=== PATIENT | female | born 1980 | race Caucasian/White ===

== ENCOUNTER 2022-10-25 15:42 | Outpatient (REF) | payer BC, SELFPAY ==
--- NOTE | ~2022-10-25 | MM_ITS ---
EXAMINATION: MM SCREENING DIGITAL BREAST TOMOSYNTHESIS, BILATERAL CLINICAL INFORMATION: Screening. Asymptomatic. Bilateral reduction mammoplasty. The lifetime risk of breast cancer based on the Tyrer-Cuzick Model is 8%. COMPARISON: Baseline mammography 02/25/2014, right breast ultrasound 02/24/2014. TECHNIQUE: Digital breast tomosynthesis is performed in both the craniocaudal and mediolateral oblique views along with computer-aided detection (CAD). Synthesized 2D images are generated from the tomosynthesis. FINDINGS: There are scattered areas of fibroglandular density (ACR BI-RADS breast composition Category b). There are interval bilateral minor scarring and bilateral reduced breast size consistent with the reduction mammoplasty. Circumscribed subcentimeter nodule anterior inferior right breast is similar to prior exam. There is no significant mass or architectural abnormality or abnormal calcifications. The axilla are unremarkable. MM/MM tomosynthesis screening BI IMPRESSION: -No mammographic evidence of malignancy. -Bilateral reduction mammoplasty changes. ASSESSMENT: BI-RADS 2: Benign RECOMMENDATION: Routine annual mammography screening. This patient's information was entered into a reminder system with a target due date for their next mammogram.
== END 2022-10-25 15:43 | disposition home or self-care (01) ==
LOC: HO.MAMMO 15:42
PROVIDERS: PCP Nurse Practitioner Family; Visit Provider Nurse Practitioner Family
DX: Z12.31 Encounter for screening mammogram for malignant neoplasm of breast (principal)
CPT/HCPCS: 77063; 77067

== ENCOUNTER 2024-07-05 15:26 | Outpatient (REF) | payer BC, SELFPAY ==
--- OUTSIDE RECORDS SUMMARY | 2024-07-05 19:30 | XMS_ITS | Data Portability ---
Author Organization [place] [facility] [place] Address [address] [place] [address] Care Team Providers Care Iron Pellet Tester Name Role Phone WILEY TRACY Primary Care Provider [phone] Assessment Encounter Date Assessment Date Assessment LastModified by Organization Details LastModified Time 10/14/2022 10/14/2022 42-year-old female with history of bilateral SI joint pain that previously improved with physical therapy. She has progressive sacral pain that radiates to her bilateral anterior groins in her proximal thighs. She also reports leg paresthesias and leg weakness. We reviewed her lumbar MRI. This was negative for high-grade neural compression. There is nondiagnostic for the severity of her symptoms. Her pain is severe. She is concerned about her stability and possible falls. We will order an MRI of her pelvis to include her sacrum and coccyx for further evaluation of causes of her severe pain. In the interim, we will send in a prescription for meloxicam. Risks and benefits were discussed. She will avoid other anti-inflammator ies while taking the medication. We discussed the option of physical therapy, at this time due to her severe pain she does not feel that she can meaningfully participate in physical therapy. She will follow-up after the MRI. Chart review: Report of the CT scan of her lumbar and sacrum, CRP, CBC, MRI of her lumbar spine. [email or web address] Not available 10/14/2022 17:38:41 10/28/2022 10/28/2022 42-year-old female with history of bilateral SI joint pain that previously improved with physical therapy. She underwent SI joint injections. The right SI joint injection gave her meaningful relief for an extended period of time. The left SI joint injection resulted in meaningful relief but only briefly. These injections persuasively suggest the pain is related to her sacroiliac joints. The SI joint injections were performed in [place]. The [place] physician discussed referral to a surgeon for SI joint fusion. I believe this is a reasonable recommendation. In the past she did well with physical therapy. We refer her to PT. If this fails she may well want to proceed with SI joint stabilization. She will do this in [place] or I am happy to refer her to a [place] surgery. This encounter required over 30 minutes of time including chart review, preparation, and documentation, face time with the patient as well as review of other documents and studies. [email or web address] Not available 10/29/2022 07:26:34 Plan of Treatment Reminders Order Date Submit Date Provider Last Modified By Organization Details Last Modified Time Details Appointments None recorded. Lab None recorded. Referral None recorded. Procedures None recorded. Surgeries None recorded. Imaging MRI, pelvis, w/o contrast - to include sacrum/cocc yx. Severe intractable sacrum/SI joint and leg pain and paresthesia s not explained by Lumbar MRI. 2022 023 MARCELINO Not available 09:29:46 Medication Orders meloxicam 15 mg tablet 2022 023 MARCELINO [id number], [address] [facility], [place], [address], 13:32:05 Patient TargetsNo targets recorded. Patient InstructionsNo instructions recorded. Reason for Referral None Reported. Results Created Date Observation Date Name Description Value Unit Range Abnormal Flag Note LastModifiedBy Organization Detail LastModifiedTime 10/16/1910/14/2022 MRI, pelvi s, w/o contr ast No observ ation record ed. [email or web address] [facility] [address], [place], [address], 10/16/2022 16:45:45 10/16/19 MRI, lumba r spine , w/o contr ast No observ ation record ed. [email or web address] Not Available 02/2023 10:20:37 10/31/19 MRI, pelvi s, w/o contr ast No observ ation record ed. [email or web address] Not Available 2022 13:36:48 Result Notes None recorded. Procedures Surgical History None recorded. Imaging Results Imaging Date Name Status LastModified by Organiz ation Details LastModified Time 10/14/2022 MRI, pelvis, w/o contrast completed [facility] [address] [address] [facility] [address], [place], [address], 10/16/2022 16:45:45 10/15/2022 MRI, lumbar spine, w/o contrast completed [email or web address] Information not available 10/15/2022 10:20:37 10/30/2022 MRI, pelvis, w/o contrast completed [email or web address] Information not available 10/30/2022 13:36:48 Procedure Notes None recorded. Medical Equipment None Reported. Medications Name Sig Start Date Stop Date Status Note LastModified by Organization Details LastModified Time binaxnow cov kit home prem active Not Available Not Available Not Available benzonatate 200 mg capsule TAKE 1 CAPSULE BY MOUTH THREE TIMES A DAY NEEDED FOR COUGH active Not Available Not Available No t Available meloxicam 15 mg tablet TAKE 1 TABLET BY MOUTH EVERY DAY NEEDED active Not Available Not Available No t Available lorazepam 0.5 mg tablet TAKE 1-2 TABS DAILY NEEDED FOR PANIC ATTACK active Not Available Not Available No t Available erythromycin 5 mg/gram (0.5 %) eye ointment PLEASE SEE ATTACHED FOR DETAILED DIRECTIONS active Not Available Not Available N ot Available brompheniram ine-pseudoep hedrine-DM 2 mg-30 mg-10 mg/5 mL oral syrup TAKE 10 ML BY MOUTH 4 (FOUR) TIMES A DAY NEEDED FOR CONGESTION OR COUGH. active Not Available Not Available No t Available ondansetron 4 mg disintegrati ng tablet DISSOLVE 1 TABLET BY MOUTH EVERY 8 HOURS NEEDED FOR NAUSEA AND VOMITING active Not Available Not Available No t Available sertraline 50 mg tablet TAKE 1/2 TABLET DAILY FOR 1-2 WEEKS THEN 1 TABLET DAILY active Not Available Not Available No t Available colestipol 1 gram tablet TAKE 2 TABLETS BY MOUTH 2 TIMES A DAY FOR 60 DAYS active Not Available Not Available Not Available oxycodone 5 mg tablet TAKE 1 TABLET BY MOUTH EVERY 4 HOURS NEEDED FOR SEVERE PAIN active Not Available Not Available Not Available BinaxNOW COVID-19 Ag Self Test kit TEST DIRECTED TODAY active Not Available Not Available No t Available Vitals Date Recorded Body weight Body mass index (BMI) Body height Provider Name and Address Organization Details Last Updated DateTime 10/28/2022 89757.66 g 29.1 kg/m2 165.[address] [facility] 10/28/2022 15:21:50 Social History None recorded. Functional Status None recorded. Mental Status None recorded. Family History Nothing Reported. Medical History No medical history recorded. Gynecological HistoryNo gynecological history recorded. Obstetrics History GPAL:G 0 P 0 0 0 0 Past Encounters Encounter ID Performer Location Encounter Start Date Encounter Closed Date Diagnosis/Indication Diagnosis SNOMED-CT Code Diagnosis ICD10 Code Diagnosis Note [id number] Moises Clemente MD [address] [address] 10/14/2022 12:17:31 10/14/2022 13:27:55 Sacral back pain 81110009 M54.50 M79.606 R20.0 W19.XXXA [id number] Moises Clemente MD [address] [address] 10/28/2022 15:09:55 10/28/2022 15:39:52 Fracture of coccyx 401173357 S32.2XXS Sacroiliac joint pain 20 0599750 M53.3 Health Concerns Section Related Observation LastModified by Organization Detai ls LastModified Time None Recorded Concern Status LastModified by Organization Details LastModified Time None Recorded Advance Directives Directive None Recorded Payers Encounter Date Sequence Insurance Name Policy Number Policy Mai Covered Member ID Mai Member ID Guarantor Name 10/14/2022 1 [place] [id number] Joseline Varma [id number] Joseline Avani 10/28/2022 1 [place] [id number] Joseline Avani [id number] Joseline Avani Notes Date Note Type Note Provider Name and Address Organization Details Recorded Time 10/14/2022 text/html Joseline is a 42-year-old female who presents today for evaluation of her lumbar spine. 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 She has a history of SI joint pain previously treated with SI joint injections and physical therapy in 2017 2018. Her symptoms significantly improved but did not fully resolved. On August 12, 2022 she fell backwards into her stairs at home. She reports that she slammed her tailbone into the stairs. She was evaluated at [facility] emergency department. CT scans of her lumbosacral spine and pelvis were obtained which per report were negative for fracture. She also had x-rays of her sacrum coccyx which per report were negative for acute abnormality. She followed up with her riding coach (Dr. Bunch) and underwent bilateral SI joint injections on September 26, 2022. She reports that she had severe headache for 5 days after the injection. She does not believe that these injections helped her symptoms. Over the past week and pain has severely worsened. She described severe lumbosacral pain with intermittent pain that radiates into her bilateral groin and superior thighs. She has intermittent left leg paresthesias and reports bilateral leg weakness. She had one occasion of urinary leakage. She did not have saddle anesthesia. her pain is worse with prolonged sitting, laying down and movement. She returned to the emergency department on October 09, 2022, she had blood work and an MRI of her lumbar spine. She pulled up her MyChart so I can review her labs. She has a CRP that was minimally elevated at 0.8, CBC was unremarkable, white blood cell count was normal. The MRI of her lumbar spine revealed mild multilevel degenerative changes. There is a disc bulge at L4-5 and L5-S1 without high-grade central or foraminal stenosis. Pain disturbs sleep. No saddle anesthesia. No bowel or bladder incontinence. No fevers, chills, or unexplained weight loss. Treatments today include bilateral SI joint injections, [id number]-[id number] medication, pain medication from the emergency department, home exercise, thermal modalities, an SI joint belt, ergonomic chair. Activity modification. GIO ALBERTO PA-C [address], [place], [address], [facility] 10/14/2022 17:39:26 10/28/2022 text/html HPI: 42-year-old woman with low back pain felt to be related to her SI joint returns for continued management. Prior Visit:Assessment & Uohl18-elob-erk female with history of bilateral SI joint pain that previously improved with physical therapy.She has progressive sacral pain that radiates to her bilateral anterior groins in her proximal thighs. She also reports leg paresthesias and leg weakness.We reviewed her lumbar MRI. This was negative for high-grade neural compression. There is nondiagnostic for the severity of her symptoms.Her pain is severe. She is concerned about her stability and possible falls.We will order an MRI of her pelvis to include her sacrum and coccyx for further evaluation of causes of her severe pain.In the interim, we will send in a prescription for meloxicam. Risks and benefits were discussed. 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 Her symptoms significantly improved but did not fully resolved.On August 12, 2022 she fell backwards into her stairs at home. She reports that she slammed her tailbone into the stairs. She was evaluated at [facility] emergency department. CT scans of her lumbosacral spine and pelvis were obtained which per report were negative for fracture. She also had x-rays of her sacrum coccyx which per report were negative for acute abnormality.She followed up with her riding coach (Dr. Bunch) and underwent bilateral SI joint injections on September 26, 2022. She reports that she had severe headache for 5 days after the injection. She does not believe that these injections helped her symptoms.Over the past week and pain has severely worsened. She described severe lumbosacral pain with intermittent pain that radiates into her bilateral groin and superior thighs. She has intermittent left leg paresthesias and reports bilateral leg weakness. She had one occasion of urinary leakage. She did not have saddle anesthesia. her pain is worse with prolonged sitting, laying down and movement.She returned to the emergency department on October 09, 2022, she had blood work and an MRI of her lumbar spine. She pulled up her MyChart so I can review her labs. She has a CRP that was minimally elevated at 0.8, CBC was unremarkable, white blood cell count was normal.The MRI of her lumbar spine revealed mild multilevel degenerative changes. There is a disc bulge at L4-5 and L5-S1 without high-grade central or foraminal stenosis.Pain disturbs sleep. No saddle anesthesia. No bowel or bladder incontinence. No fevers, chills, or unexplained weight loss.Treatments today include bilateral SI joint injections, hkyj-hsi-lvfpwzv medication, pain medication from the emergency department, home exercise, thermal modalities, an SI joint belt, ergonomic chair. Activity modification. Moises Clemente MD [address], [place], [address], [facility] 10/29/2022 07:27:09 OBGyn Episode No OBEpisode recorded.
--- OUTSIDE RECORDS SUMMARY | 2024-07-05 19:30 | XMS_ITS | Clinical Summary ---
Author Organization [facility] Address [address] [place] [address] Care Team Providers Care Side Stitching Machine Operator Name Role Phone Unknown Primary Care Provider [phone] Allergies Active Allergy Reactions Criticality Noted Date Comments Amoxicillin Hives Medium 03/21/2022 Cephalexin Hives Medium 03/21/2022 Levofloxacin Rash/Dermatitis Low 06/10/2017 hives hives Penicillins Hives Medium 03/21/2022 Medications Medication Sig Dispensed Refills Start Date End Date Status sertraline (ZOLOFT) 50 MG tablet TAKE 1/2 TABLET DAILY FOR 1-2 WEEKS THEN 1 TABLET DAILY 03/01/2022 Active fluticasone (FloNASE) 50 mcg/spray nasal sprayIndications:Vi ral URI with cough 1 spray into each nostril daily. 1 each 04/09/2023 Active benzonatate (TESSALON) 200 MG capsuleIndications: Viral URI with cough Take 1 capsule (200 mg total) by mouth 3 (three) times a day as needed for cough. 30 capsule 04/09/2023 Active albuterol (PROVENTIL HFA; VENTOLIN HFA) 108 (90 Base) MCG/ACT inhalerIndications: Viral URI with cough Inhale 2 puffs 4 times daily (every 6 hours) as needed for wheezing. 1 each 04/09/2023 Active erythromycin (ILOTYCIN) ophthalmic ointmentIndications :Hordeolum externum of right lower eyelid Administer 1 application(s) to the right eye 4 (four) times a day. 3.5 g 01/20/2024 Active Active Problems Problem Noted Date Diagnosed Date Class 1 obesity 01/23/2022 Hypo-osmolality and hyponatremia 01/23/2022 Inflammation of sacroiliac joint 07/24/2018 Trochanteric bursitis of right hip 07/24/2018 Anxiety disorder 06/10/2017 Hypertrophy of breast 06/10/2017 Insomnia 06/10/2017 Psychophysiological insomnia 06/10/2017 Laryngitis 06/10/2017 Mild intermittent asthma with acute exacerbation 06/10/2017 Moderate persistent asthma without complication 06/10/2017 Overactive bladder 06/10/2017 Overweight 06/10/2017 Stress incontinence in female 06/10/2017 Immunizations Name Administration Dates Next Due Influenza Inactivated/Split Preservative Free IM 03/29/2011 Influenza, Quadrivalent (FLU ARIX, AFLURIA, FLULAVAL, FLUZONE) Preservative Free IM 05/25/2018 Influenza, Unspecified 03/29/2011 Tdap 10/22/2017 Social History Tobacco Use Types Packs/Day Years Used Date Smoking Tobacco: Never Smokeless Tobacco: Never Tobacco Cessation:Counseling Given: Not Answered Alcohol Use Standard Drinks/Week Comments Never 0 (1 standard drink = 0.6 oz pur e alcohol) Sex and Gender Information Value Date Recorded Sex Assigned at Not on file Gender Identity Not on file Sexual Orientation Not on file Last Filed Vital Signs Vital Sign Reading Time Taken Comments Blood Pressure 130/86 01/20/2024 9:08 AM EDT Pulse 66 01/20/2024 9:08 AM EDT Temperature 36.1 ??C (96.9 ??F) 01/20/2024 9:08 AM ED T Respiratory Rate 16 01/20/2024 9:08 AM EDT Oxygen Saturation 97% 01/20/2024 9:08 AM EDT Inhaled Oxygen Concentration - - Weight 84.4 kg (186 lb) 03/21/2022 3:09 PM EDT Height - - Body Mass Index - - Plan of Treatment Health Maintenance Due Date Last Done Comments Hepatitis C Virus Screening 1978 HIV Screening 1991 Hepatitis B Vaccines (1 of 3 - 19+ 3-dose series) 1997 Pneumococcal Vaccine: Pediatric (0-5 Years) and At-Risk Patients (6 to 49 Years) (1 of 2 - PCV) 1997 Pap Smear (Ages 21-65) 1999 Mammogram 2018 Colonoscopy 2023 Influenza Vaccine 01/08/2024 05/25/2018, 03/29/2011, 03/29/2011 COVID-19 Vaccine ( - 2023-2 5 season) 2024 DTaP/Tdap/Td Vaccines (2 - T d or Tdap) 10/23/2027 10/22/2017 HPV Vaccines Aged Out No longer eligi ble based on patient's age to complete this topic Care Teams Side Stitching Machine Operator Relationship Specialty Start Date End Date Unknown Unknow Provider Address PCP - General 03/21/22
--- OUTSIDE RECORDS SUMMARY | 2024-07-05 19:30 | XMS_ITS | Clinical Summary ---
Author Organization [facility] Address [address] [place] [address] Care Team Providers Care Electric Operator Name Role Phone Bethany English NP Primary Care Provider [phone] Allergies Active Allergy Reactions Criticality Noted Date Comments Cephalexin Hives,Rash Medium 06/10/2017 Levofloxacin Rash Low 06/10/2017 Penicillins Rash Medium 06/10/2017 Medications Medication Sig Dispensed Refills Start Date End Date Status cyclobenzaprine (FLEXERIL) 5 MG tablet Take 1 tablet (5 mg total) by mouth 3 (three) times a day as needed for muscle spasms. 30 tablet 0 09/14/2023 Active Active Problems No known active problems Social History Tobacco Use Types Packs/Day Years Used Date Smoking Tobacco: Never Assessed Sex and Gender Information Value Date Recorded Sex Assigned at Female 09/13/2023 12:33 PM EDT Gender Identity Female 09/13/2023 12:33 PM EDT Sexual Orientation Not on file Job Start Date Occupation Industry Not on file Not on file Not on file Last Filed Vital Signs Vital Sign Reading Time Taken Comments Blood Pressure 132/65 09/14/2023 6:41 AM EDT Pulse 82 09/14/2023 6:41 AM EDT Temperature 36.7 ??C (98 ??F) 09/14/2023 6:41 AM EDT Respiratory Rate 20 09/14/2023 6:41 AM EDT Oxygen Saturation 98% 09/14/2023 6:41 AM EDT Inhaled Oxygen Concentration - - Weight 74.4 kg (164 lb) 09/14/2023 7:22 AM EDT Height 162.6 cm (5' 4 ) 09/14/2023 7:22 AM EDT Body Mass Index 28.15 09/14/2023 7:22 AM EDT Plan of Treatment Health Maintenance Due Date Last Done Comments Hepatitis B Vaccines (1 of 3 - 3-dose series) 1978 Hepatitis C Screening 1978 COVID-19 Vaccine (#1) 1978 Depression Screening 1990 Preventative Health Evaluation 1996 Cervical Cancer Screening (Pap Smear) 1999 Colon Cancer Screening (Colonoscopy) 2023 Influenza Vaccine (#1) 2024 8, 03/29/2011 DTap / Tdap / Td (2 - Td or Tdap) 10/23/2027 10/22/2017 Pneumococcal Vaccine Aged Out No long er eligible based on patient's age to complete this topic RSV Ped < 20 months Aged Out No longe r eligible based on patient's age to complete this topic Care Teams Electric Operator Relationship Specialty Start Date End Date Bethany English NP [address] [facility] [place] [address] PCP - General Family Medicine 09/13/23
--- OUTSIDE RECORDS SUMMARY | 2024-07-05 19:30 | XMS_ITS | Encounter Summary ---
Author Organization [facility] Address [address] [place] [address] Care Team Providers Care Vp Respiratory Name Role Phone Unknown Primary Care Provider [phone] Encounter Details Date Type Department Care Team (Late st Contact Info) Description 04/16/2022 10:42 AM EST Hospital Encounter [facility] [address] [place] [address] Diamante Barber PA [address] [facility] Social History Tobacco Use Types Packs/Day Years Used Date Smoking Tobacco: Never Smokeless Tobacco: Never Alcohol Use Standard Drinks/Week Comments Never 0 (1 standard drink = 0.6 oz pur e alcohol) Sex and Gender Information Value Date Recorded Sex Assigned at Not on file Gender Identity Not on file Sexual Orientation Not on file COVID-19 Exposure Response Date Recorded In the last 10 days, have yo u been in contact with someone who was confirmed or suspected to have Coronavirus/COVID-19? Unable to assess 04/16/2022 10:42 AM EST documented as of this encounter Plan of Treatment Not on file documented as of this encounter Procedures Procedure Name Priority Date/Time Associated Diagnosis Comments XR HAND 3+ VIEWS-RIGHT STAT 04/16/2022 10:49 AM EST Right hand pain documented in this encounter Results * XR Hand 3+ views-Right (04/16/2022 10:49 AM EST) Anatomical Region Laterality Modality Hand Right Computed Radiogr aphy 04/16/2022 11:0 2 AM EST Impressions 04/16/2022 11:03 AM EST No acute right hand abnormality. Narrative 04/16/2022 11:03 AM EST PA, lateral and oblique right hand views were obtained. ??No prior studies for comparison. HISTORY: ??right hand pain after jamming hand into wall. TTP over the 3rd and 4th MC with mild STS and ecchymosis. FINDINGS: ??Alignment is normal. ??No fracture. ??No deformity. ??Joint spaces are maintained. ??Soft tissues are unremarkable. Procedure Note Neno Tavares MD - 04/16/2022 PA, lateral and oblique right hand views were obtained. No prior studiesfor comparison. HISTORY: right hand pain after jamming hand into wall. TTP over the 3rdand 4th MC with mild STS and ecchymosis. FINDINGS: Alignment is normal. No fracture. No deformity. Joint spacesare maintained. Soft tissues are unremarkable. IMPRESSION: No acute right hand abnormality. Diamante [facility] ORDERABLES documented in this encounter Visit Diagnoses Not on filedocumented in this encounter Care Teams Vp Respiratory Relationship Specialty Start Date End Date Unknown Unknow Provider Address PCP - General 03/21/22 documented as of this encounter
--- OUTSIDE RECORDS SUMMARY | 2024-07-05 19:30 | XMS_ITS ---
Author Name [facility] Organization Unknown History of Medication Use Medication Directions Dispensed Refills Start Date End Date Stat acetaminophen (TYLENOL) tablet 975 mg 975 mg, Oral, Once, On 09/13/23 at 1400, For 1 dose 09/13/2023 4 completed ketorolac (TORADOL) injection 15 mg 15 mg, Intravenous, Once, On 09/14/23 at 0700, For 1 dose 09/14/2023 4 completed sertraline 50 mg tablet TAKE 1/2 TABLET DAILY FOR 1-2 WEEKS THEN 1 TABLET DAILY active erythromycin 5 mg/gram (0.5 %) eye ointment PLEASE SEE ATTACHED FOR DETAILED DIRECTIONS active colestipol 1 gram tablet TAKE 2 TABLETS BY MOUTH 2 TIMES A DAY FOR 60 DAYS active ondansetron 4 mg disintegrating tablet DISSOLVE 1 TABLET BY MOUTH EVERY 8 HOURS NEEDED FOR NAUSEA AND VOMITING active albuterol (PROVENTIL HFA; VENTOLIN HFA) 108 (90 Base) MCG/ACT inhaler Inhale 2 puffs 4 times daily (every 6 hours) as needed for wheezing. 04/09/2023 active oxyCODONE (ROXICODONE) 5 MG immediate release tablet 5 mg 5 mg, Oral, Once, On 09/13/23 at 1815, For 1 dose 09/13/2023 4 completed No known medications No known medications active ondansetron (ZOFRAN) injection 4 mg 4 mg, Intravenous, Once, On 09/13/23 at 1230, For 1 doseIV push over 2 to 5 minutes. 09/13/2023 4 completed Problems Problem Status Onset Date Problem Type Date of Resolution Source Insomnia active 2 ProblemAct [facility] Class 1 obesity active 2022-01-07 7 ProblemAct [facility] Hordeolum externum of right lower eyelid active EncounterDiagnosisAct [facility] Trochanteric bursitis of right hip active 2018-07-10 5 ProblemAct [facility] Back pain active EncounterDiagnosisAct [facility] Sacroiliitis (HCC) active EncounterDiagnosisAct [facility] Hypertrophy of breast active 2 ProblemAct [facility] Anxiety disorder active 2 ProblemAct [facility] Overweight active 2 ProblemAct [facility] Inflammation of sacroiliac joint active 2018-07-10 5 ProblemAct [facility] Laryngitis active 2 ProblemAct [facility] Hypo-osmolality and hyponatremia active 2022-01-07 7 ProblemAct [facility] Psychophysiological insomnia active 2 ProblemAct [facility] Stress incontinence in female active 2 ProblemAct [facility] Mild intermittent asthma with acute exacerbation active 2 ProblemAct [facility] Overactive bladder active 2 ProblemAct [facility] Moderate persistent asthma without complication active 2 ProblemAct [facility] Immunizations Vaccine Date Source Lot Number Status Tdap 10/22/2017 [facility] [id number] completed Influenza, Unspecified 03/29/2011 [facility] co mpleted Influenza Inactivated/Split Preservative Free IM 03/29/2011 [facility] completed Influenza, Quadrivalent (FLU ARIX, AFLURIA, FLULAVAL, FLUZONE) Preservative Free IM 05/25/2018 [facility] [id number] completed
--- OUTSIDE RECORDS SUMMARY | 2024-07-05 19:30 | XMS_ITS | Clinical Summary ---
Author Organization [facility] [place] [address] Care Team Providers Care Employee Benefits Director Name Role Phone Bethany English NP Primary Care Provider Unavailabl e Social History Tobacco Use Types Packs/Day Years Used Date Smoking Tobacco: Never Assessed Sex and Gender Information Value Date Recorded Sex Assigned at Not on file Gender Identity Not on file Sexual Orientation Not on file Obstetrics History Plan of Treatment Health Maintenance Due Date Last Done Comments Breast Cancer Screening 1978 DTaP,Tdap,and Td Vaccines (1 - Tdap) 1997 Hepatitis B Vaccines (1 of 3 - 19+ 3-dose series) 1997 Cervical Cancer Screening: P ap Smear 1999 Colorectal Cancer Screening: Colonoscopy 07/04/2023 Depression Screening 07/04/2023 HIV Screening 07/04/2023 Hepatitis C Screening 07/04/2023 Social Influencers of Health Screening 07/04/2023 COVID-19 Vaccine ( - 2023-2 5 season) 2024 Influenza Vaccine (#1) 2024 HIB Vaccines Aged Out No longer eligi ble based on patient's age to complete this topic HPV Vaccines Aged Out No longer eligi ble based on patient's age to complete this topic Hepatitis A Vaccines Aged Out No long er eligible based on patient's age to complete this topic IPV Vaccines Aged Out No longer eligi ble based on patient's age to complete this topic MMR Vaccines Aged Out No longer eligi ble based on patient's age to complete this topic Meningococcal ACWY Vaccine Aged Out N o longer eligible based on patient's age to complete this topic Pneumococcal Vaccine: Pediat rics (0 to 5 Years) and At-Risk Patients (6 to 64 Years) Aged Out No longer eligible b ased on patient's age to complete this topic RSV Immunization Patients Un cullen 20 months Aged Out No longer eligible b ased on patient's age to complete this topic Varicella Vaccines Aged Out No longer eligible based on patient's age to complete this topic Care Teams Employee Benefits Director Relationship Specialty Start Date End Date Bethany English NP PCP - General 09/13/23
--- OUTSIDE RECORDS SUMMARY | 2024-07-05 19:30 | XMS_ITS | Data Portability ---
Author Organization [facility], [employer] - [facility] Address [address] 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 Overall the patient is doing well postoperatively. Her pre-op symptoms of left-sided pain are improving. She is neurologically intact. Her incision is healing well. X-ray shows evidence of well-positioned sacroiliac bolts in the left SI joint. Her right side is now very symptomatic. She did get over 6 months of relief with our previous right-sided SI joint injection. But is now interested in having this addressed surgically. She has done extensive nonoperative treatment for the SI joint on the right side with a full course with multiple full courses of physical therapy, home excercises as well as multiple epidural injections. At this point, I do believe she may be a candidate for an SI joint stabilization on the right side. The last step required before moving forward with this is a diagnostic-only injection. We will get her set up for a right-sided diagnostic SI joint injection with local anesthetic and she will follow up with me in a few days after to discuss the relief that she got. If she does get significant relief from this then we can consider moving forward with a right-side joint stabilisation. PLAN: The patients symptoms, imaging, diagnosis, and treatment options were discussed at length today. After educating the patient, the following recommendations were agreed upon: ------ A referral was placed for Spinal Injections, specifically - right-sided diagnostic SI joint injection. I discussed the risks and benefits of the injection. The patient was advised to keep a pain diary to assess the effects of the injection ------ FOLLOW UP The patient will follow up with us 1-2 weeks after the injection to assess for effect Not available 09/23/2023 11:58:30 10/08/2023 10/08/2023 ASSESSMENT Diagnosis: 8 months s/p left SI joint stabilization The patient underwent a left SI joint stabilization approximately 8 months ago. Overall the patient is doing well postoperatively. Her pre-op symptoms of left-sided pain are improving. She is neurologically intact. Her incision is healing well. X-ray shows evidence of well-positioned sacroiliac bolts in the left SI joint. More recently she has had similar pain symptoms in her right SI joint. Pain is isolated to the right buttock region. She has numerous positive SI joint provocative maneuvers on exam. Her lumbar imaging and CT pelvis did not show any obvious concurrent pathology. She has had previous therapeutic SI joint steroid injections with significant, greater than 90% pain relief. She has also done extensive multiple courses of physical therapy focused on her SI joints. Most recently her purely diagnostic SI joint injection gave her once again nearly 100% pain relief but only for short duration of time. I believe that we now had enough diagnostic information to proceed with a right SI joint stabilization. At length discussion with the patient regarding SI joint stabilization. We discussed the risks benefits alternatives. I explained that I could surgery to be similar to her left side from which she got profound relief. At this point she is interested in proceeding. PLAN: The patients symptoms, imaging, diagnosis, and treatment options were discussed at length today. After educating the patient, the following recommendations were agreed upon: ------ Surgery is recommended. The patient has failed all other conservative options. At this point they are a candidate for surgery. The surgery would be a right SI joint stabilization The risks and benefits of thoraco-lumbar surgery in general were discussed at length. The risks discussed include the cardio-pulmonary risks of anesthesia, blood clots, scarring, post operative pain, blood loss and need for transfusion, risk of infection, risk of damage to neurologic structures resulting in partial paralysis, bowel or bladder incontinence, and the understanding that some complications can occur which are unexpected. I discussed the risks specific to a SI joint stabilization. This includes pain in the gluteal musculature with some bleeding, damage to the L5 and S1 nerve roots as well as the nerve roots leading to the bowel and bladder function. Fracture of the sacrum or ilium. Possible damage to intrapelvic structures. Finally I discussed that SI joint pathology is sometimes confounded by other pain generator and the patient may not get 100% relief. I also explained that I use the SI-Bone I-Fuse titanium bolt implants for the stabilization. I explained that this is the only hardware that has level 1 evidence to support its use. No guarantees were given or implied. The patient will consider this surgical option, and begin the pre-operative clearance and optimization process with their PCP. This surgery will be done as an outpatient. The surgery will require general anesthesia will be a mild physiologic burden on the patient. ------ FOLLOW UP The patient will follow up with us for their pre-op appointment Not available 10/08/2023 21:15:16 10/20/2023 10/20/2023 ASSESSMENT Diagnosis: 8 months s/p left SI joint stabilization, now with right SI joint dysfunction Surgical Plan: right SI joint stabilization PLAN: The patients symptoms, imaging, diagnosis, surgery, and post operative course were discussed at length today. We again reviewed the risks of surgery in depth that were discussed at the last visit. I discussed the risks specific to a SI joint stabilization. This includes pain in the gluteal musculature with some bleeding, damage to the L5 and S1 nerve roots as well as the nerve roots leading to the bowel and bladder function. Fracture of the sacrum or ilium. Possible damage to intrapelvic structures. Finally I discussed that SI joint pathology is sometimes confounded by other pain generator and the patient may not get 100% relief. I also explained that I use the SI-Bone I-Fuse titanium bolt implants for the stabilization. I explained that this is the only hardware that has level 1 evidence to support its use. Post operative instructions were reviewed in detail. I also reviewed the post operative medications I will be starting in detail with the patient. I will plan to prescribe these medications upon discharge after surgery. The patient elected to proceed with surgery. The patient's specific questions about Intraoperative risk and postoperative recovery were answered. ------ FOLLOW UP The patient will follow up with me in clinic 3 weeks after surgery. Not available 10/21/2023 12:03:09 11/17/2023 11/17/2023 ASSESSMENT Diagnosis: 3 weeks s/p right SI joint stabilization The patient is a pleasant 43 year old female who is here for a postoperative visit. The patient underwent a right SI joint stabilization approximately 3 weeks ago. She has a previous history of a left SI joint stabilization. Overall the patient is doing well postoperatively. Their pre-op symptoms are largely resolved. The patient reports some muscle spasms in her right buttock and hamstring. On exam, the patient? s incision is well healed. The patient is neurologically is intact throughout. X-rays show well-positioned and intact titanium bolts in the bilateral SI joint. The patient is doing very well postoperatively. She has had near complete resolution of her pain. She s has some soreness and occasional spasming in her right buttock due to the surgical dissection, but otherwise is doing very well postoperatively. She is not taking any pain medications. I asked her to minimize any bending, twisting, lifting, or straining through the SI joint for the next 3 months. I encouraged her to continue ambulating as much as possible. She will follow up with me in 3 months for a telehealth appointment. Can consider core strengthening PT at that time is necessary. PLAN: The patients symptoms, imaging, diagnosis, and treatment options were discussed at length today. After educating the patient, the following recommendations were agreed upon: ------ FOLLOW UP The patient will follow up with us in 3 months for telehealth Not available 11/17/2023 19:49:14 02/23/2024 02/23/2024 ASSESSMENT Diagnosis: 3 months s/p right SI joint stabilization The patient is a pleasant 43 year old female who is here for a postoperative visit. The patient underwent a right SI joint stabilization approximately 3 months ago. She has a previous history of a left SI joint stabilization. Overall the patient is doing well postoperatively. Their pre-op symptoms are largely resolved. The patient reports some muscle spasms in her right buttock and hamstring. On exam, the patient? s incision is well healed. The patient is neurologically is intact throughout. X-rays show well-positioned and intact titanium bolts in the bilateral SI joint. Overall the patient is doing very well postoperatively. Her preop symptoms continue to be resolved. At this point I believe she would benefit from some physical therapy. She no longer has restrictions from my end. We will focus on both core strength and lumbar range of motion as well as some hip flexibility given the stiffness she feels in the morning. She can follow-up with me in 8 months for her 1 year postop visit. PLAN: The patients symptoms, imaging, diagnosis, and treatment options were discussed at length today. After educating the patient, the following recommendations were agreed upon: ------ The patient would benefit from Physical Therapy, specifically- Core Strengthening, Paraspinal Muscles Strengthening and Lower Back Range of Motion ------ ------ FOLLOW UP The patient will follow up with us in 8 months for a 1 year follow up Not available 02/23/2024 22:50:05 Plan of Treatment Reminders Order Date Submit Date Provider Last Modified By Organization Details Last Modified Time Details Appointments None recorded. Lab None recorded. Referral None recorded. Procedures sacroiliac joint injection (PROC) - RIGHT SIDED SI JOINT INJECTION (LOCAL ANESTHETIC ONLY)-PLEAS E SCHEDULE LEA [address], [address] [place] [address] -, [address], [place], [address], 20:28:35 Surgeries None recorded. Imaging XR, pelvis, 1 or 2 view [address] - Office - [place], [address] [facility], [facility] [address], [place], [address], 11:57:29 XR, pelvis, 3 or more view [address] Office - [place], [address] [place] [address], [facility] [address], [place], [address], 19:51:26 Medication Orders cyclobenzap rine 10 mg tablet 2023 024 [place] [address] [id number], [phone] [place], [address], 19:51:26 Patient TargetsNo targets recorded. Patient Instructions Encounter Date Encounter Id Patient Instructions Last Modified By Organization Details Last Modified Time 09/22/2023 [id number] weight managemen t education [place] [address] Not available 09/22/2023 20:28:35 11/17/2023 [id number] [facility] managemen [email or web address] Not available 11/17/2023 19:51:26 Reason for Referral None Reported. Results Created Date Observation Date Name Description Value Unit Range Abnormal Flag Note LastModifiedBy Organization Detail LastModifiedTime 09/22/19 24 XR, pelvi s, 1 or 2 view No observ ation record ed. [email or web address] Office - [place] [address] [facility], [place], [address], 09/23/2023 11:57:29 11/17/19 24 XR, pelvi s, 3 or more view No observ ation record ed. [facility] [place] [address] [place] [address], [place], [address], 11/17/2023 19:48:32 Result Notes None recorded. Problems No Known Problems Procedures Surgical History None recorded. Imaging Results Imaging Date Name Status LastModified by Organiz ation Details LastModified Time 09/22/2023 XR, pelvis, 1 or 2 view completed [address] - Office - [place] [address] [facility] [address], [place], [address], 09/23/2023 11:57:29 11/17/2023 XR, pelvis, 3 or more view completed [address] - [place] [address], [place], [address], 11/17/2023 19:48:32 Procedure Notes None recorded. Medical Equipment None Reported. Allergies Allergen ID Allergen Name Allergen Category Reaction Reaction Severity Criticality Documentation Date Start Date Code Code System Note Provider Name and Address Organization Details Recorded Time [id number] 2824e Keflex medicatio n Not available Not available Not available 10/21/2022 48334 7 RxNorm Not Available Not Available Not Available [id number] 2824e amoxicill in medicatio n Not available Not available Not available 10/21/2022 723 RxNorm Not Available Not Available Not Available [id number] 2824e Product containin g penicilli n and antibioti c (product) medicatio n Not available Not available Not available 10/21/2022 59870 05 SNOMED Not Available Not Available Not Available Medications Name Sig Start Date Stop Date Status Note LastModified by Organization Details LastModified Time binaxnow cov kit home prem 10/21 completed Not Available Not Available Not Available cyclobenzap rine 10 mg tablet TAKE 1 TABLET BY MOUTH THREE TIMES A DAY NEEDED FOR 30 DAYS active Not Available Not Available No t Available azithromyci n 250 mg tablet TAKE 2 TABLETS BY MOUTH TODAY, THEN TAKE 1 TABLET DAILY FOR 4 DAYS DIRECTED active Not Available Not Available No t Available benzonatate 200 mg capsule TAKE 1 CAPSULE BY MOUTH THREE TIMES A DAY NEEDED FOR COUGH active Not Available Not Available No t Available meloxicam 15 mg tablet TAKE 1 TABLET BY MOUTH EVERY DAY NEEDED 10/21 completed Not Available Not Available Not Available ondansetron HCl 4 mg tablet TAKE 1 TABLET BY MOUTH EVERY 8 HOURS NEEDED FOR NAUSEA AND VOMITING active Not Available Not Available No t Available prednisone 20 mg tablet active Not Available Not Available Not Available acetaminoph en 500 mg tablet TAKE 2 TABLETS BY MOUTH EVERY 8 HOURS active Not Available Not Available No t Available lorazepam 0.5 mg tablet TAKE 1-2 TABS DAILY NEEDED FOR PANIC ATTACK 10/21 completed Not Available Not Available Not Available Zoloft 50 mg tablet Take 1 tablet every day by oral route. active Not Available Not Available No t Available erythromyci n 5 mg/gram (0.5 %) eye ointment ADMINISTE R 1 APPLICATI ON(S) TO THE RIGHT EYE 4 (FOUR) TIMES A DAY. active Not Available Not Available No t Available gabapentin 300 mg capsule Take 1 capsule 3 times a day by oral route. active Not Available Not Available No t Available lorazepam 1 mg tablet active Not Available Not Available No t Available ibuprofen 600 mg tablet TAKE 1 TABLET BY MOUTH EVERY 6 HOURS NEEDED FOR PAIN active Not Available Not Available No t Available methylpredn isolone 4 mg tablets in a dose pack TAKE DIRECTED BY MOUTH active Not Available Not Available No t Available bromphenira mine-pseudo ephedrine-D M 2 mg-30 mg-10 mg/5 mL oral syrup TAKE 10 ML BY MOUTH 4 (FOUR) TIMES A DAY NEEDED FOR CONGESTIO N OR COUGH. 10/21 completed Not Available Not Available Not Available ondansetron 4 mg disintegrat ing tablet Place 2 tablets twice a day by transling ual route, for nausea. active Not Available Not Available No t Available fluticasone propionate 50 mcg/actuati on nasal spray,suspe nsion INSTILL 1 SPRAY INTO EACH NOSTRIL EVERY DAY active Not Available Not Available No t Available colestipol 1 gram tablet TAKE 2 TABLETS BY MOUTH 2 TIMES A DAY FOR 60 DAYS 10/21 completed Not Available Not Available Not Available Ventolin HFA 90 mcg/actuati on aerosol inhaler INHALE 2 PUFFS BY MOUTH EVERY 6 HOURS NEEDED FOR WHEEZE active Not Available Not Available No t Available oxycodone 5 mg tablet Take 1 tablet every 6-8 hours by oral route. active Not Available Not Available No t Available cyclobenzap rine 5 mg tablet active Not Available Not Available Not Available Vitamin D3 125 mcg (5,000 unit) tablet Take 1 tablet every day by oral route for 90 days. 2023 active Not Available Not Available Not Avai lable cholecalcif waylon(vitami n D3) 125 mcg (5,000 unit) disintegrat ing tablet TAKE 1 TABLET BY MOUTH EVERY DAY active Not Available Not Available No t Available BinaxNOW COVID-19 Ag Self Test kit TEST DIRECTED TODAY 10/21 completed Not Available Not Available Not Available Vitals Date Recorded Body height Body mass index (BMI) Body weight Provider Name and Address Organization Details Last Updated DateTime 09/22/2023 162.56 cm 30 kg/m2 19931.66 g [facility] 09/22/2023 14:46:42 Date Recorded Body height Body mass index (BMI) Body weight Provider Name and Address Organization Details Last Updated DateTime 11/17/2023 162.56 cm 30 kg/m2 90306.66 g [facility] 11/17/2023 15:29:08 Social History Question Answer Notes LastModified by Organizat ion Details LastModified Time Tobacco Smoking Status Never Smoker cliff ziegler, [facility] 10/21/2022 14:22:59 What Is Your Level Of Alcohol Consumption? Occasional Information not available 10/21/2022 What Is Your Level Of Caffeine Consumption? Moderate Information not available 10/21/2022 What Was The Date Of Your Most Recent Tobacco Screening? 11/17/2023 [email or web address] Information not available 11/17/2023 Have You Ever Been Counseled For Unhealthy Alcohol Use? No [email or web address] Information not available 01/27/2023 Has Tobacco Cessation Counseling Been Provided? No [email or web address] Information not available 01/27/2023 Do You Or Have You Ever Used Any Other Forms Of Tobacco Or Nicotine? No [email or web address] Information not available 01/27/2023 Sex: Unknown Functional Status None recorded. Mental Status None recorded. Family History Nothing Reported. Medical History Condition Response Coronary Artery Disease N Other N Gout N Blood Diseases N Hyperthyroidism N MRSA N Blood disorders N Blood Transfusion N Emphysema N Head Trauma/Injury N heart arrhythmia N COPD N Depression N Pneumonia N Arthritis (osteoarthritis, psoriatic, Rh eumatoid) N Steriod use (injection, oral) Y Prostate Problems N Edema N Gastrointestinal Disease N Paralysis N Anxiety Disorder N Autoimmune disease N Dental problem (dentures) N Arthritis Y Autoimmune Disorder (HIV/AIDS) N Blood Clot N Acid Reflux (GERD) N Cancer N Crohn's Disease N Leg or Foot Ulcers N Raynaud's Disease N Polio N Stroke/TIA N Rheumatoid Arthritis N Arrhythmia N Fibromyalgia N Headaches Y Kidney Disease N sports induced asthma N Hospitalizations N Spine/back problems Y Migraines N Artificial Joints N Kidney or Bladder Problems N Skin Problems N Joint Pain N Neck Pain N Urinary Problems N Brain Injury N Ulcers N Infection N Rheumatic Fever N Bleeding Disorder N Tuberculosis N Hypertension (high blood pressure) N AIDS/HIV N Asthma Y Amputation N Substance Abuse N Respiratory Problem (asthma, COPD, sleep apnea) N Skin problem (eczema, ulcer, rash) N Sleep Disorder N Gastrointestinal Problem (GERD, reflux) N GERD/Reflux N Hepatitis N balance problem (vertigo) N Neuropathy N Pulmonary Embolism N Anxiety/Depression Y Thyroid Disease N Hernia N Ambulatory Support (cane, crutches, walk er) N Ostomy N Peripheral Vascular Disease (DVT, PE) N Lung Disease N Glaucoma N Hypothyroidism N Pacemaker N Neurological Problem (MS, Parkinson's) N Vascular Disease N Anesthesia Complications N Deep Vein Thrombosis N Varicose Veins N Spasticity N Head Injury/Concussion N Serious Illness or Injuries N Jean Bite N History of fracture N Back Injury N Alcohol Overuse/Alcohol Abuse N Pain Management Treatment N Liver Disease N Organ Transplant N Dialysis N Foot Deformity N Dyslipidemia N Parkinson's Disease N Falls N Thyroid Problems N ADD/ADHD N Osteoporosis/Osteopenia N Anemia N Lyme disease N Multiple Sclerosis N Back Pain Y Sjogren's Syndorme N Heart Attack (AK) N Mental Illness N Heart Problems (atrial fibrillation, AK, pacemaker) N Diabetes N Seizures/Epilepsy N Hyperlipidemia (high cholesterol) N Congestive Heart Failure (CHF) N Diverticulitis N Vision Problems N Lupus N Ankylosing Spondylitis N Epilepsy/Seizures N Psoriasis N Sleep Apnea N Memory Loss (Alzheimer's, dementia) N Aneurysm N Heart Disease N Osteoporosis N Gynecological HistoryNo gynecological history recorded. Obstetrics History GPAL:G 0 P 0 0 0 0 Past Encounters Encounter ID Performer Location Encounter Start Date Encounter Closed Date Diagnosis/Indication Diagnosis SNOMED-CT Code Diagnosis ICD10 Code Diagnosis Note [id number] [facility] [address] [place] [address] 10/21/2022 14:14:12 10/21/2022 15:32:14 Body mass index 30+ - obesity 236123588 Z68.30 Hip pain 86919686 M25.55 9 [id number] MD MICHELLE Greene[address] [place] [address] 12/09/2022 22:32:47 12/15/2022 05:22:33 Body mass index 30+ - obesity 525069084 Z68.30 Sacroiliac joint pain 20 3279355 M53.3 [id number] [facility] [place] [address] [place] [address] , [place] [address] 01/03/2023 15:38:50 01/10/2023 09:22:59 Sacroiliac joint pain 312040279 M53.3 [id number] MD ALEK Greene [address] [place] [address] 01/27/2023 15:56:24 01/27/2023 16:32:26 Body mass index 30+ - obesity 683179577 Z68.30 Postoperative visit 1836 70811 Z09 [id number] MD MICHELLE Greene[address] [place] [address] 02/17/2023 13:16:11 02/17/2023 14:49:03 Body mass index 30+ - obesity 791946206 Z68.30 Low back pain 462926503 M54.50 [id number] [facility] - OFFICE - [place] [address] [place] [address] 03/24/2023 14:52:19 03/24/2023 15:46:12 Pain in pelvis 07926045 R10.2 Body mass index 30+ - obesity 376971259 Z68.30 [id number] [facility] [place] [address] [place] [address] 09/22/2023 14:25:53 09/22/2023 15:46:43 Body mass index 30+ - obesity 132962997 Z68.30 Pain in pelvis 04822541 R10.2 Sacroiliac joint pain 20 3617927 M53.3 [id number] MD ALEK Greene OFFICE - [place] [address] [facility] [place] [address] 10/08/2023 15:49:31 10/08/2023 17:05:01 Sacroiliac joint pain 617236898 M53.3 [id number] Kenisha Rodriguez MD [facility] OFFICE - [place] [address] [place] [address] 10/20/2023 15:51:13 10/31/2023 08:06:43 Sacroiliac joint pain 914073016 M53.3 [id number] [facility] [place] [address] [place] [address] 11/17/2023 15:21:00 11/17/2023 15:56:34 Body mass index 30+ - obesity 050388690 Z68.30 Pain in pelvis 43213468 R10.2 [id number] [facility] [place] [address] [place] [address] 02/23/2024 15:12:04 02/23/2024 16:13:11 Sacroiliac joint pain 653523003 M53.3 Health Concerns Section Related Observation LastModified by Organization Detai ls LastModified Time None Recorded Concern Status LastModified by Organization Details LastModified Time None Recorded Advance Directives Directive None Recorded Payers Encounter Date Sequence Insurance Name Policy Number Policy Mai Covered Member ID Mai Member ID Guarantor Name 09/22/2023 1 [place] [id number] Joseline Varma [id number] Joseline Varma 10/08/2023 1 [place] [id number] Joseline Varma [id number] Joseline Varma 10/20/2023 1 [place] [id number] Joseline Varma [id number] Joseline Varma 11/17/2023 1 [place] [id number] Joseline Varma [id number] Joseline Varma 02/23/2024 1 [place] [id number] Joseline Varma [id number] Joseline Varma Notes Date Note Type Note Provider Name and Address Organization Details Recorded Time 09/22/2023 text/html The patient is a 43 y/o female who presents today for post-op appointment. The patient underwent a left SI joint stabilization approximately 8 months ago. Overall the patient is doing well postoperatively. Her pre-op symptoms of left-sided pain are improving. She is neurologically intact. Her incision is healing well. X-ray shows evidence of well-positioned sacroiliac bolts in the left SI joint. At the last appointment, I recommended her to follow up with me in 4-6 weeks. The patient presents today with primarily right sided buttock pain. The pain radiates from the right buttock to the upper hamstring. She has had these symptoms for the last year, but they have severely worsened over the last month atraumatically. She has required a trip to the emergency department due to the pain. The patient's pain is 7 out of 10 in severity today. She does have some subjective weakness on the right side. She is struggling with activities of daily living as a result. She can only work 3 out of 5 days a week due to the severity of the pain with activity. She has tried multiple courses of oral steroids as well as Cyclobenzaprine without relief. She has done multiple courses of physical therapy focused on her SI joint in the past. She has kept up with SI joint excercises in this time frame. Her most recent injection at the right SI joint was in February of 2023, which gave her 100% pain relief until a few weeks ago. Kenisha Rodriguez MD [address], [place], [address], [facility], [facility] 09/23/2023 11:58:48 10/08/2023 text/html The patient is a 43-year-old woman who presents for evaluation of her right SI joint pain. The visit was conducted via telemedicine. The patient was present at home. They consented to proceed with this telemedicine appointment. The patient underwent a left SI joint stabilization approximately 8 months ago. Overall the patient is doing well postoperatively. Her pre-op symptoms of left-sided pain are improving. She is neurologically intact. Her incision is healing well. X-ray shows evidence of well-positioned sacroiliac bolts in the left SI joint. More recently she has had similar pain symptoms in her right SI joint. Pain is isolated to the right buttock region. She has numerous positive SI joint provocative maneuvers on exam. Her lumbar imaging and CT pelvis did not show any obvious concurrent pathology. She has had previous therapeutic SI joint steroid injections with significant, greater than 90% pain relief. She has also done physical therapy focused on her SI joints for several months. At the last appointment, I recommended trialling a right sided SI joint injection with local anesthetic alone for purely diagnostic effect. The patient had this injection done on ? 26? 1 24. She endorses nearly 100% pain relief after this injection only lasting for less than a day. Since that time the pain has since returned. She continues to endorse 5 out of 10 pain at all times be worse when it flares up. She continues to report pain that is primary in the right buttock. Kenisha Rodriguez MD [address], [place], [address], [facility], [facility] 10/08/2023 21:16:14 10/20/2023 text/html The patient is a pleasant 43 year old {{male female*}} with a diagnosis of 8 months s/p left SI joint stabilization, now with right SI joint dysfunction who presents to us today to confirm their decision to proceed with surgery. The surgery that is planned is a right SI joint stabilization. The visit was conducted via telemedicine. The patient was present at home. They consented to proceed with this telemedicine appointment. The patient's complaints remain largely the same as prior visits: namely right buttock pain. The patient has exhausted all conservative options and is here for a final review of the diagnosis, surgical plan, and post-operative course. Kenisha Rodriguez MD [address], [place], [address], [facility] 10/21/2023 12:03:31 11/17/2023 text/html The patient is a pleasant 43 year old {{male female*}} who is here for a postoperative visit.The patient underwent a right SI joint stabilization approximately {{3 weeks* 3 months 6 months 1 year}} ago. Overall the patient is doing well postoperatively. Their pre-op symptoms are largely resolved.Currently, the patient's post operative pain is {{1 2 3 4 5 6 7 8 9 1 0 0#}}/10 in severity. The patient reports some muscle spasms in her right buttock and hamstring. She reports no subjective weakness or numbness. The patient reports no concerning symptoms such as Fevers / Chills, Drainage from wound, Focal Neurologic Weakness, Abnormal Urinary Function, Incontinence or Saddle Anesthesia. The patient use of pain medications {{has completely stopped* is restricted to over the counter medications is ongoing. The patient is taking }}.The patient has returned to {{activities of daily living* walking normal distances sports, specifically }}. They are ambulating {{without assistive device* with a cane with a walker}}.Overall the patient {{is* is not}} very satisfied with the surgery. Kenisha Rodriguez MD [address], [place], [address], [facility] 11/17/2023 19:49:23 02/23/2024 text/html The patient is a 43 y/o female who presents today for follow-up of her lower back pain. The patient is a pleasant 43 year old female who is here for a postoperative visit. The patient underwent a right SI joint stabilization approximately 4 months ago. She has a previous history of a left SI joint stabilization. Overall the patient is doing well postoperatively. Their pre-op symptoms are largely resolved. The patient reports some muscle spasms in her right buttock and hamstring. On exam, the patient? s incision is well healed. The patient is neurologically is intact throughout. X-rays show well-positioned and intact titanium bolts in the bilateral SI joint. At the last appointment, I recommended the patient to take Cyclobenzaprine as needed for pain relief. The visit was conducted via telemedicine. The patient was present at home. They consented to proceed with this telemedicine appointment. Overall the patient has been doing well 4 months after her right SI joint stabilization. She states that her preoperative pain symptoms continue to be largely resolved. She does endorse some stiffness in bilateral hip joints in the mornings but this gets better with time. The stiffness can be as bad as 6 out of 10 in severity. She is not requiring any significant pain medications for this. Kenisha Rodriguez MD [address],[facility], [place], [address], [facility], [facility] 02/23/2024 22:50:28 OBGyn Episode No OBEpisode recorded.
--- OUTSIDE RECORDS SUMMARY | 2024-07-05 19:30 | XMS_ITS | Clinical Summary ---
Author Organization [facility] Address [address] [place] [address] Phone Care Team Providers Care Brass Reclaimer Name Role Phone Bethany English NP Primary Care Provider Unavailabl e Allergies Active Allergy Reactions Criticality Noted Date Comments Cephalexin Rash Low 06/10/2017 Levofloxacin Rash Low 06/10/2017 hives Penicillins Other (see comments),Rash Low 8 Medications No known medications Active Problems Problem Noted Date Diagnosed Date Obese class I 01/23/2022 Hypo-osmolality and hyponatremia 01/23/2022 Inflammation of sacroiliac joint 07/24/2018 Trochanteric bursitis of right hip 07/24/2018 Anxiety disorder 06/10/2017 Female stress incontinence 06/10/2017 Hypertrophy of breast 06/10/2017 Insomnia 06/10/2017 Laryngitis 06/10/2017 Mild intermittent asthma with acute exacerbation 06/10/2017 Overactive bladder 06/10/2017 Overweight 06/10/2017 Uncomplicated moderate persistent asthma 018 Immunizations Name Administration Dates Next Due Influenza, Quadrivalent, Preservative Free 05/25 Influenza, Unspecified 03/29/2011 Tdap 10/22/2017 Family History Relation Status Comments Father Mother Social History Tobacco Use Types Packs/Day Years Used Date Smoking Tobacco: Never Assessed Tobacco Cessation:Counseling Given: No Alcohol Use Standard Drinks/Week Comments Never 0 (1 standard drink = 0.6 oz pur e alcohol) Comments Unknown Sex and Gender Information Value Date Recorded Sex Assigned at Not on file Legal Sex Female 10:51 AM EDT Gender Identity Not on file Sexual Orientation Not on file Last Filed Vital Signs Vital Sign Reading Time Taken Comments Blood Pressure 121/60 01/23/2022 3:34 PM EDT Pulse 68 01/23/2022 3:34 PM EDT Temperature - - Respiratory Rate - - Oxygen Saturation 98% 01/23/2022 3:34 PM EDT Inhaled Oxygen Concentration - - Weight 84.3 kg (185 lb 12.8 oz) 01/23/2022 3:34 PM EDT Height - - Body Mass Index - - Plan of Treatment Health Maintenance Due Date Last Done Comments Hepatitis B Vaccine (1 of 3 - 19+ 3-dose series) 1997 Influenza Vaccine (#1) 2024 8, 03/29/2011 Pneumococcal Vaccine: Pediatrics (0 to 5 Years) and At-Risk Patients (6 to 64 Years) Aged Out No longer eligible b ased on patient's age to complete this topic Insurance [facility] Care Teams Brass Reclaimer Relationship Specialty Start Date End Date Bethany English NP PCP - General Nurse Practitioner 01/23/22
--- OUTSIDE RECORDS SUMMARY | 2024-07-05 19:30 | XMS_ITS | Encounter Summary ---
Author Organization [facility] Address [address] [place] [address] Care Team Providers Care Infusion Pharmacist Name Role Phone Unknown Primary Care Provider [phone] Encounter Details Date Type Department Care Team (Late st Contact Info) Description 03/21/2022 3:35 PM EDT Hospital Encounter [facility] [place] Urgent Care [address] [place] [id number] Florentino Lopez MD [address] [place] [address] Social History Tobacco Use Types Packs/Day Years [...] Name Priority Date/Time Associated Diagnosis Comments XR CHEST 2 VIEWS STAT 03/21/2022 3:45 PM EDT Acute left-sided thoracic back pain Acute cough documented in this encounter Results * XR Chest 2 views (03/21/2022 3:45 PM EDT) Anatomical Region Laterality Modality Chest Computed Radiogr aphy 03/21/2022 3:54 PM EDT Impressions 03/21/2022 3:54 PM EDT 1. ??No acute process detected. Narrative 03/21/2022 3:54 PM EDT XR CHEST 2 VIEWS: 03/21/2022 3:35 PM CLINICAL HISTORY: left thoracic back pain +cough; rule out pneumonia. Acute left-sided thoracic back pain, Acute cough. COMPARISON:There are no prior studies for comparison FINDINGS: The osseous structures are intact. The lungs are clear. The heart and mediastinum are unremarkable. Pulmonary vascularity is normal. ?? No pleural effusion or pneumothorax. No acute pulmonary parenchymal process detected. Procedure Note Toney Casper MD - 03/21/2022 XR CHEST 2 VIEWS: 03/21/2022 3:35 PM CLINICAL HISTORY: left thoracic back pain +cough; rule out pneumonia. Acute left-sidedthoracic back pain, Acute cough. COMPARISON:There are no prior studies for comparison FINDINGS: The osseous structures are intact. The lungs are clear. The heart and mediastinum are unremarkable. Pulmonaryvascularity is normal. No pleural effusion or pneumothorax. No acute pulmonary parenchymalprocess detected. IMPRESSION: 1. No acute process detected. JENNIFER Mora [facility] NG ORDERABLES documented in this encounter Visit Diagnoses Not on filedocumented in this encounter Care Teams Infusion Pharmacist Relationship Specialty Start Date End Date Unknown Unknow Provider Address PCP - General 03/21/22 documented as of this encounter
== END 2024-07-05 15:27 | disposition home or self-care (01) ==
LOC: HO.MAMMO 15:26
PROVIDERS: PCP Physician Assistant Medical; Visit Provider Physician Assistant Medical
DX: Z12.31 Encounter for screening mammogram for malignant neoplasm of breast (principal)
CPT/HCPCS: 77063; 77067